=== PATIENT | male | born 1975 | race Caucasian/White ===

== ENCOUNTER → 2020-01-02 15:00 | Outpatient (BNVA) | payer MEDICARE, OTHER, SELFPAY | PROVIDERS: Visit Provider Nurse Practitioner Psychiatric/Mental Health | DX: F33.40 Major depressive disorder, recurrent, in remission, unspecified (principal); F43.12 Post-traumatic stress disorder, chronic; F40.01 Agoraphobia with panic disorder; Z79.899 Other long term (current) drug therapy; Z51.81 Encounter for therapeutic drug level monitoring | CPT/HCPCS: 99213 ==

== ENCOUNTER → 2020-03-26 07:56 | Outpatient (BNVA) | payer MEDICARE, OTHER, SELFPAY | PROVIDERS: Visit Provider Nurse Practitioner Psychiatric/Mental Health | DX: F40.01 Agoraphobia with panic disorder (principal); F43.12 Post-traumatic stress disorder, chronic; F33.40 Major depressive disorder, recurrent, in remission, unspecified; Z79.899 Other long term (current) drug therapy; Z51.81 Encounter for therapeutic drug level monitoring | CPT/HCPCS: 80053; 80164; 85007; 85027; 99212 ==

== ENCOUNTER 2020-06-04 06:00 | Outpatient (RCR) | payer MEDICARE, OTHER, SELFPAY | END 2020-06-15 23:59 | disposition home or self-care (01) | LOC: MPT 06:00 | PROVIDERS: PCP Chiropractor Orthopedic; Referring Provider Family Medicine; Visit Provider Family Medicine | DX: G25.82 Stiff-man syndrome (principal); G37.3 Acute transverse myelitis in demyelinating disease of central nervous system | CPT/HCPCS: 97110; 97140; 97162; 97530 ==

== ENCOUNTER 2020-06-16 06:00 | Outpatient (RCR) | payer MEDICARE, OTHER, SELFPAY | END 2020-07-16 23:59 | disposition home or self-care (01) | LOC: MPT 06:00 | PROVIDERS: PCP Chiropractor Orthopedic; Referring Provider Family Medicine; Visit Provider Family Medicine | DX: G37.3 Acute transverse myelitis in demyelinating disease of central nervous system (principal) | CPT/HCPCS: 97110; 97112; 97140; 97530 ==

== ENCOUNTER → 2020-06-26 07:57 | Outpatient (BNVA) | payer MEDICARE, OTHER, SELFPAY | PROVIDERS: PCP Chiropractor Orthopedic; Visit Provider Nurse Practitioner Psychiatric/Mental Health | DX: F40.01 Agoraphobia with panic disorder (principal); F43.12 Post-traumatic stress disorder, chronic; F33.40 Major depressive disorder, recurrent, in remission, unspecified | CPT/HCPCS: 99212 ==

== ENCOUNTER 2020-06-28 12:11 | Outpatient (RCR) | payer MEDICARE, OTHER, SELFPAY | END 2020-07-16 23:59 | disposition home or self-care (01) | LOC: MOT 12:11 | PROVIDERS: PCP Chiropractor Orthopedic; Referring Provider Family Medicine; Visit Provider Family Medicine | DX: G37.3 Acute transverse myelitis in demyelinating disease of central nervous system (principal) | CPT/HCPCS: 97140; 97166; 97530; 97542 ==

== ENCOUNTER 2020-07-17 06:00 | Outpatient (RCR) | payer MEDICARE, OTHER, SELFPAY | END 2020-08-15 23:59 | disposition home or self-care (01) | LOC: MOT 06:00 | PROVIDERS: PCP Chiropractor Orthopedic; Referring Provider Family Medicine; Visit Provider Family Medicine | DX: G37.3 Acute transverse myelitis in demyelinating disease of central nervous system (principal) | CPT/HCPCS: 97140; 97530; 97535; 97760; G0283 ==

== ENCOUNTER 2020-07-17 06:00 | Outpatient (RCR) | payer MEDICARE, OTHER, SELFPAY | END 2020-08-15 23:59 | disposition home or self-care (01) | LOC: MPT 06:00 | PROVIDERS: PCP Chiropractor Orthopedic; Referring Provider Family Medicine; Visit Provider Family Medicine | DX: G37.3 Acute transverse myelitis in demyelinating disease of central nervous system (principal) | CPT/HCPCS: 97110; 97112; 97140; 97530; G0283 ==

== ENCOUNTER 2020-08-16 06:00 | Outpatient (RCR) | payer MEDICARE, OTHER, SELFPAY | END 2020-09-15 23:59 | disposition home or self-care (01) | LOC: MPT 06:00 | PROVIDERS: PCP Chiropractor Orthopedic; Referring Provider Family Medicine; Visit Provider Family Medicine | DX: G37.3 Acute transverse myelitis in demyelinating disease of central nervous system (principal) | CPT/HCPCS: 97110; 97140; 97530 ==

== ENCOUNTER 2020-08-16 06:00 | Outpatient (RCR) | payer MEDICARE, OTHER, SELFPAY | END 2020-09-15 23:59 | disposition home or self-care (01) | LOC: MOT 06:00 | PROVIDERS: PCP Chiropractor Orthopedic; Referring Provider Family Medicine; Visit Provider Family Medicine | DX: G37.3 Acute transverse myelitis in demyelinating disease of central nervous system (principal) | CPT/HCPCS: 97140; 97530; 97542; 97760 ==

== ENCOUNTER 2020-09-16 06:00 | Outpatient (RCR) | payer MEDICARE, OTHER, SELFPAY | END 2020-10-15 23:59 | disposition home or self-care (01) | LOC: MOT 06:00 | PROVIDERS: PCP Chiropractor Orthopedic; Referring Provider Family Medicine; Visit Provider Family Medicine | DX: G37.3 Acute transverse myelitis in demyelinating disease of central nervous system (principal) | CPT/HCPCS: 97542 ==

== ENCOUNTER 2020-09-16 06:00 | Outpatient (RCR) | payer MEDICARE, OTHER, SELFPAY | END 2020-10-15 23:59 | disposition home or self-care (01) | LOC: MPT 06:00 | PROVIDERS: PCP Chiropractor Orthopedic; Referring Provider Family Medicine; Visit Provider Family Medicine | DX: G37.3 Acute transverse myelitis in demyelinating disease of central nervous system (principal) | CPT/HCPCS: 97140 ==

== ENCOUNTER → 2020-09-18 07:46 | Outpatient (BNVA) | payer MEDICARE, OTHER, SELFPAY | PROVIDERS: PCP Chiropractor Orthopedic; Visit Provider Nurse Practitioner Psychiatric/Mental Health | DX: F43.12 Post-traumatic stress disorder, chronic (principal); F40.01 Agoraphobia with panic disorder; F33.40 Major depressive disorder, recurrent, in remission, unspecified | CPT/HCPCS: G0463 ==

== ENCOUNTER → 2020-12-18 09:59 | Outpatient (BNVA) | payer MEDICARE, OTHER, SELFPAY | PROVIDERS: PCP Chiropractor Orthopedic; Visit Provider Nurse Practitioner Psychiatric/Mental Health | DX: F40.01 Agoraphobia with panic disorder (principal); F43.12 Post-traumatic stress disorder, chronic; F33.40 Major depressive disorder, recurrent, in remission, unspecified | CPT/HCPCS: 99213 ==

== ENCOUNTER → 2021-03-12 09:26 | Outpatient (BNVA) | payer MEDICARE, OTHER, SELFPAY | PROVIDERS: PCP Chiropractor Orthopedic; Visit Provider Nurse Practitioner Psychiatric/Mental Health | DX: F40.01 Agoraphobia with panic disorder (principal); F43.12 Post-traumatic stress disorder, chronic; F33.40 Major depressive disorder, recurrent, in remission, unspecified | CPT/HCPCS: 99213 ==

== ENCOUNTER → 2021-06-04 07:32 | Outpatient (BNVA) | payer MEDICARE, OTHER, SELFPAY | PROVIDERS: PCP Chiropractor Orthopedic; Visit Provider Nurse Practitioner Psychiatric/Mental Health | DX: F43.12 Post-traumatic stress disorder, chronic (principal); F33.40 Major depressive disorder, recurrent, in remission, unspecified; F40.01 Agoraphobia with panic disorder | CPT/HCPCS: 99213 ==

== ENCOUNTER → 2021-08-29 09:26 | Outpatient (BNVA) | payer MEDICARE, OTHER, SELFPAY | PROVIDERS: PCP Chiropractor Orthopedic; Visit Provider Nurse Practitioner Psychiatric/Mental Health | DX: F43.12 Post-traumatic stress disorder, chronic (principal); F33.40 Major depressive disorder, recurrent, in remission, unspecified; F40.01 Agoraphobia with panic disorder; Z79.899 Other long term (current) drug therapy | CPT/HCPCS: 99213 ==

== ENCOUNTER → 2021-11-21 08:35 | Outpatient (BNVA) | payer MEDICARE, OTHER, SELFPAY | PROVIDERS: PCP Chiropractor Orthopedic; Visit Provider Nurse Practitioner Psychiatric/Mental Health | DX: F43.12 Post-traumatic stress disorder, chronic (principal); F33.40 Major depressive disorder, recurrent, in remission, unspecified; F40.01 Agoraphobia with panic disorder; Z79.899 Other long term (current) drug therapy; Z51.81 Encounter for therapeutic drug level monitoring | CPT/HCPCS: 99214 ==

== ENCOUNTER → 2022-04-01 07:27 | Outpatient (BNVA) | payer MEDICARE, OTHER, SELFPAY | PROVIDERS: PCP Chiropractor Orthopedic; Visit Provider Nurse Practitioner Psychiatric/Mental Health | DX: F43.12 Post-traumatic stress disorder, chronic (principal); F33.40 Major depressive disorder, recurrent, in remission, unspecified; F40.01 Agoraphobia with panic disorder; Z79.899 Other long term (current) drug therapy | CPT/HCPCS: 99214 ==

== ENCOUNTER → 2022-09-05 09:11 | Outpatient (BNVA) | payer MEDICARE, OTHER, SELFPAY | PROVIDERS: PCP Chiropractor Orthopedic; Visit Provider Registered Nurse | DX: Z79.899 Other long term (current) drug therapy (principal) | CPT/HCPCS: 80053; 80061; 80164; 82306; 82607; 84443; 85025 ==